=== PATIENT | female | born 1955 | race Caucasian/White ===

== ENCOUNTER → 2016-09-21 | Outpatient (CLI) | payer MEDICARE, OTHER ==
[2016-09-21 08:07] LABS: Basophils # (A) 0.1 k/uL (0-0.2); Basophils % (A) 1 %; CH 32.5; CHCM 34.2; Eosinophils # (A) 0.3 k/uL (0-0.7); Eosinophils % (A) 3 %; HCT 51.3 % (34.0-46.0); HDW 2.31; HGB 17.2 gm/dL (11.4-16.0); Luc # (Auto) 0.35; Luc % (Auto) 4; Lymphocytes # (A) 2.3 k/uL (1.0-4.8); Lymphocytes % (A) 24 %; MCHC 33.6 g/dL (31.0-37.0); MCV 95.5 fL (80.0-100.0); Mean Platelet Volume 7.9; Monocytes # (A) 0.5 k/uL (0-1.0); Monocytes % (A) 5 %; Neutrophils # (A) 6.3 k/uL (1.3-7.7); Neutrophils % (A) 64 %; RBC 5.38 m/uL (3.80-5.40); WBC 9.9 k/uL (3.8-10.6); WBC (Perox) 9.24
[2016-09-21 10:57] LABS: ALT 43 U/L (9-52); AST 21 U/L (14-36); Alkaline Phosphatase 94 U/L (38-126); Anion Gap 11 mmol/L; Blood Urea Nitrogen 16 mg/dL (7-17); Calcium 9.7 mg/dL (8.4-10.2); Carbon Dioxide 30 mmol/L (22-30); Chloride 97 mmol/L (98-107); Cholesterol 178 mg/dL (<200); Glucose 133 mg/dL (74-99); HDL Cholesterol 49 mg/dL (40-60); Non-African American GFR(MDRD) >60 (>60 ml/min/1.73 sqM); Potassium 4.9 mmol/L (3.5-5.1); Sodium 138 mmol/L (137-145); Total Bilirubin 0.7 mg/dL (0.2-1.3); Total Protein 7.4 g/dL (6.3-8.2); Triglycerides 284 mg/dL (<150)
[2016-09-21 11:39] LABS: Vitamin B12 348 pg/mL (239-931)
== END | disposition home or self-care (01) ==
LOC: LABWHC1 07:51 → EEVIPCON 07:51
PROVIDERS: ATTEND Physician Assistant Medical
DX: E03.9 Hypothyroidism, unspecified (principal); E66.9 Obesity, unspecified; Z79.899 Other long term (current) drug therapy
CPT/HCPCS: 36415; 80053; 80061; 82306; 82607; 83036; 84439; 84443; 85025

== ENCOUNTER 2020-07-29 07:14 | Emergency (ER) | payer MEDICARE, OTHER ==
[2020-07-29 07:20] VITALS: BP 141/89; PULSE 72; RESP 20; TEMP 98.3
--- NOTE | 2020-07-29 07:47 | ED ---
General Adult HPI - General Chief complaint: ENT Stated complaint: ear fullness Time Seen by Provider: 07/29/20 07:23 Source: patient, RN notes reviewed Mode of arrival: ambulatory Limitations: no limitations - History of Present Illness Initial comments: Patient is a pleasant 62-year-old female presenting to the emergency Department with complaints of ear fullness. Patient states she had symptoms starting over week ago. Patient went to urgent care and was given an antibiotic, azithromycin. Patient states she is ALLERGIC to amoxicillin. Patient states the infection since cleared up however she still has some fullness of her ears. Patient states she has been a little bit lightheaded occasionally. No hearing loss. Patient states there was concern for sinus infection. Patient does have rhinorrhea, clear however no congestion. Patient states symptoms are mild. Patient denies any difficulty with coordination or walking. - Related Data Previous Rx's Medication Instructions Recorded Clarithromycin [Biaxin] 500 mg PO BID 10 Days #20 tab 07/29/20 Loratadine [Claritin] 10 mg PO DAILY #15 tab 07/29/20 Allergies Allergy/AdvReac Type Severity Reaction Status Date / Time No Known Allergies Allergy Verified 07/29/20 07:20 Review of Systems ROS Statement: Those systems with pertinent positive or pertinent negative responses have been documented in the HPI. ROS Other: All systems not noted in ROS Statement are negative. Constitutional: Denies: fever Eyes: Denies: eye pain ENT: Reports: as per HPI Respiratory: Denies: cough Cardiovascular: Denies: chest pain Endocrine: Denies: fatigue Gastrointestinal: Denies: abdominal pain Genitourinary: Denies: dysuria Musculoskeletal: Denies: back pain Skin: Denies: rash Neurological: Denies: headache, weakness, confusion Past Medical History Past Medical History: Hyperlipidemia, Hypertension, Thyroid Disorder History of Any Multi-Drug Resistant Organisms: None Reported Past Surgical History: Section Past Psychological History: Anxiety Smoking Status: Current every day smoker Past Alcohol Use History: Occasional Past Drug Use History: None Reported General Exam Limitations: no limitations General appearance: alert, in no apparent distress Head exam: Present: atraumatic Eye exam: Present: normal appearance, PERRL, EOMI. Absent: nystagmus ENT exam: Present: normal oropharynx, other (Patient does have mild amount of fluid bilateral TMs. Mild erythema, more so on the right) Neck exam: Present: normal inspection. Absent: tenderness Respiratory exam: Present: normal lung sounds bilaterally Cardiovascular Exam: Present: regular rate, normal rhythm GI/Abdominal exam: Present: soft. Absent: tenderness Extremities exam: Present: normal inspection. Absent: pedal edema, calf tenderness Neurological exam: Present: alert, CN II-XII intact. Absent: motor sensory deficit Expanded Speech: Present: fluid speech Cranial nerves: EOM's Intact: Normal Motor strength exam: RUE: 5, LUE: 5, RLE: 5, LLE: 5 Eye Response: (4) open spontaneously Motor Response: (6) obeys commands Verbal Response: (5) oriented Psychiatric exam: Present: normal affect, normal mood Skin exam: Present: normal color Course Vital Signs 07/29/20 07:16 Temperature 98.3 F Pulse Rate 72 Respiratory 20 Rate Blood Pressure 141/89 O2 Sat by Pulse 100 Oximetry Disposition Clinical Impression: Otitis media, Middle ear effusion Disposition: HOME SELF-CARE Condition: Stable Instructions (If sedation given, give patient instructions): Earache (ED) Additional Instructions: Please do follow-up with primary care physician as well as ENT, number provided in the next day or 2 for recheck. Return for difficulty walking or problems with coordination, confusion or weakness, speech problems, hearing loss, worsening symptoms or any other concerns. Prescriptions have been sent to [facility] pharmacy in [place] Prescriptions: Clarithromycin [Biaxin] 500 mg PO BID 10 Days #20 tab Loratadine [Claritin] 10 mg PO DAILY #15 tab Is patient prescribed a controlled substance at d/c from ED?: No Referrals: [facility],Jaime Ugarte [Primary Care Provider] - 1-2 days Rambo Gonzalez MD [STAFF PHYSICIAN] - 1-2 days Time of Disposition: 07:45
== END 2020-07-29 07:54 | disposition home or self-care (01) ==
LOC: EC 07:14
DX: H65.90 Unspecified nonsuppurative otitis media, unspecified ear (principal); F17.200 Nicotine dependence, unspecified, uncomplicated
CPT/HCPCS: 99282

== ENCOUNTER → 2023-12-30 | Outpatient (CLI) | payer MEDICARE, OTHER | END | disposition home or self-care (01) | LOC: LABPRL 12:00 | PROVIDERS: ATTEND Registered Nurse | DX: I10 Essential (primary) hypertension (principal); E78.2 Mixed hyperlipidemia; E03.9 Hypothyroidism, unspecified | CPT/HCPCS: 80053; 80061; 82306; 82607; 83735; 84439; 84443; 85025 ==

== ENCOUNTER → 2024-11-08 | Outpatient (CLI) | payer MEDICARE, OTHER ==
--- NOTE | 2024-11-08 11:37 | MM ---
Reason for Exam: Clinical finding. Indicated Problems: Lump or thickening of the right side for 2 Week(s). Patient History: Menarche at age 14. First Full-Term at age 21. Postmenopausal. Risk Values: Lizette 5 year model risk: 1.2%. NCI Lifetime model risk: 4.4%. Prior Study Comparison: No prior studies available for comparison. Tissue Density: There are scattered areas of fibroglandular density. Findings: Analyzed By CAD. Palpable abnormality correlates with estimated mass in the upper outer quadrant upper outer quadrant. This is located in the area of the upper outer quadrant approximately 6.4 cm from the nipple measuring up to 16 mm. Overall Assessment: Incomplete: need additional imaging evaluation, BI-RAD 0 Management: Diagnostic Breast Ultrasound of the right breast. Results were given to the patient verbally at the time of exam. Patient should continue monthly self-breast exams. A clinical breast exam by your physician is recommended on an annual basis. This exam should not preclude additional follow-up of suspicious palpable abnormalities. Note on Lizette scores and lifetime risk: 1. A Lizette score greater than 3% is considered moderate risk. If this is the case, consider specialist referral to assess eligibility for a risk reducing agent. 2. If overall lifetime risk for the development of breast cancer is 20% or higher, the patient may qualify for future screening with alternating mammogram and breast MRI. [facility], , 11/08/2024 11:34 AM. Electronically signed and approved by: Cassius Wiseman DO
--- NOTE | 2024-11-08 11:37 | USB ---
Patient History: Menarche at age 14. First Full-Term at age 21. Postmenopausal. Risk Values: Lizette 5 year model risk: 1.2%. NCI Lifetime model risk: 4.4%. Findings: Technique utilized:US breast limited RT Image; Ultrasound imaging of: All 4 quadrants, the retroareolar region and axilla. Irregular shaped hypoechoic mass at 11:00 6 cm from the nipple in the area of palpable abnormality measuring at least 1.5 x 1.6 x 1.8 cm. Satellite lesion measuring up to 6 mm present at 11:00 5 cm from the nipple. Additionally there is thickened cortex lymph nodes present up to 6 mm. Overall Assessment: Highly suggestive of malignancy, BI-RAD 5 Management: Ultrasound Core Biopsy of the right breast. At least 2 site biopsy including the right axilla and right breast mass at 11:00 6 cm from the nipple. A clinical breast exam by your physician is recommended on an annual basis and results should be correlated with mammographic findings. This exam should not preclude additional follow-up of suspicious palpable abnormalities. Results were given to the patient verbally at the time of exam. [facility], , 11/08/2024 11:34 AM. Electronically signed and approved by: Cassius Wiseman DO
== END | disposition home or self-care (01) ==
LOC: RADMAMWWP 10:33
PROVIDERS: ATTEND Internal Medicine Pulmonary Disease
DX: N63.10 Unspecified lump in the right breast, unspecified quadrant (principal); R92.323 Mammographic fibroglandular density, bilateral breasts; Z78.0 Asymptomatic menopausal state
CPT/HCPCS: 77066; 76642; G0279; 77062

== ENCOUNTER → 2024-11-23 | Day surgery (SDC) | payer MEDICARE, OTHER ==
--- NOTE | 2024-12-05 08:36 | MM ---
Reason for Exam: Post Procedure Mammogram. Last screening mammogram was performed less than 1 month ago. Patient History: Menarche at age 14. First Full-Term at age 21. Postmenopausal. Risk Values: Lizette 5 year model risk: 1.2%. NCI Lifetime model risk: 4.2%. Prior Study Comparison: 11/08/2024 Bilateral MG 3D diag mammo w/cad [facility], [facility]. Tissue Density: Right: There are scattered areas of fibroglandular density. Pathology Description: Location: axilla. Marker Left Behind. Cores: 2 Gauge: 18 Bard 18g. Pathology Description: Location: 11 o'clock. Marker Left Behind. Needle Type: Celero Cores: 2 Gauge: 12 The procedure of ultrasound guided core biopsy was explained to the patient. Benefits, alternatives, and risks were discussed. An informed consent was then obtained. The patient was placed in supine positioning for imaging and for the procedure. Preprocedure imaging redemonstrates a lobulated 1.6 cm hypoechoic mass at 11:00 position 6 cm distance from nipple and a suspicious 1.1 x 0.9 cm lymph node in the right axilla with eccentric cortical thickening. The overlying skin was prepped and draped in usual sterile fashion. Lidocaine buffered with bicarbonate was used as anesthetic into the skin and subcutaneous tissue . Lidocaine with epinephrine is used as anesthetic into the deeper tissue up to 2 areas of concern in the right breast. Under ultrasound guidance, a vacuum assisted biopsy gun device was used to obtain 2 core samples of the 11:00 mass. Following this, a biopsy clip was left in lesion. Under ultrasound guidance, a 18-gauge Bard device was used to obtain 2 core samples of the right axillary lymph node. Following this, a biopsy clip was left in lesion. The patient tolerated the procedure well without any immediate complication. The patient was kept in the radiology department for short stay after the procedure and then discharged home in stable condition. Postprocedure mammogram: The patient was transferred to mammography for physician ordered post procedure mammogram for clip placement verification. Post procedure mammogram demonstrates appropriate placement of clip in the 11:00 lesion. Second clip is not identified due to position high in the axilla. Impression: Successful, uncomplicated ultrasound guided core biopsy of 2 areas of concern in the right breast, full pathology results to follow. High index of suspicion noted at time of procedure. [facility], , 11/23/2024 1:04 PM. Pathology Results: Result: Malignant, Invasive ductal carcinoma. Pathology and radiology were reviewed. Findings are concordant. A. RIGHT BREAST 11:00, CORE BIOPSY: Invasive well differentiated ductal carcinoma (Grade 1). See Surgical Pathology Cancer Case Summary and Comment. B. RIGHT AXILLA, CORE BIOPSY: Benign lymph node. Overall Assessment: Malignant Assessment: MG diagnostic mammo RT wo CAD - Right: Known biopsy proven malignancy, BI-RAD 6. Management: Surgical Consultation of the right breast. Electronically signed and approved by: Ryan Wasserman M.D.
== END ==
LOC: RADUSWWP 10:11
PROVIDERS: ATTEND Surgery
DX: C50.411 Malignant neoplasm of upper-outer quadrant of right female breast (principal); Z17.0 Estrogen receptor positive status [ER+]; Z78.0 Asymptomatic menopausal state
CPT/HCPCS: 88305; 88342; 88341; 77065; 19083; 38505; A4648

== ENCOUNTER → 2024-12-13 | Outpatient (CLI) | payer MEDICARE, OTHER ==
[2024-12-13 15:18] VITALS: BP 136/82; PULSE 59; RESP 17; TEMP 98
--- NOTE | 2024-12-13 15:58 | P.GSCN ---
History of Present Illness Consult date: 12/13/24 Reason for Consult: right breast IDC [id number] Requesting physician: Aleksandar Mendoza History of present illness: Екатерина is a 69 year old female seen with her sales representative electric service from [facility], Gisselle Martel regarding a biopsy proven right breast invasive ductal cancer. She had a bilateral mammogram on 11-08-24 which led to a right breast ultrasound on the same date. She had a core biopsy on 11-23-24 of the bresat lesion as well as an axillary node. The cortes was benign, and the breat lesion wash IDC, 1.8 mm in size. Within a cm of the lesion there was a second lesion noted on ultrasound which was considered suspicious. Екатерина felt a lump in her right breast for about one month. She than had a mammogram. This was her first mammogram. She also feels a lump under her arm. She is not complaining of any ni[pple discharge or skin changes. She has not had any surgery on her breast. She lives independently. She does have a history of schizophrenia, she sees Jayne Garcia; fluphenazine decanonateIm every two weeks at [facility]. Caffeine: 2 cups to 3 cups/day of coffee Nicotine: 2 packs/day Chocolate: occasional hormones: none Family History: adopted at three non known Hormonal History: menarche: 14 , age at first : 21, breat fed: no menopause: 40's Surgical History: episotomy and 2 C-Sections Medical History: she has a legal gaurdian Social History: nicotine: 2 PPD alcohol: weekly, drinks beer drugs: Marijuana monthly Review of Systems - Constitutional Denies fever, Denies weight loss - EENT Eyes: denies blurred vision Ears: deny: decreased hearing, tinnitus Ears, nose, mouth and throat: Denies dysphagia - Breasts bilateral: as per HPI - Cardiovascular Denies chest pain, Denies shortness of breath - Respiratory Denies cough, Denies 7 - Gastrointestinal Reports as per HPI - Genitourinary Genitourinary: Denies dysuria, Denies hematuria Menstruation: Reports postmenopausal - Musculoskeletal Reports as per HPI - Integumentary Reports as per HPI - Neurological Reports as per HPI - Psychiatric Psychiatric Comment(s): schizophrenia Reports as per HPI - Endocrine Reports as per HPI - Hematologic/Lymphatic Denies easy bleeding, Denies easy bruising - Allergic/Immunologic Reports as per HPI Past Medical History Past Medical History: Hyperlipidemia, Hypertension, Thyroid Disorder History of Any Multi-Drug Resistant Organisms: None Reported Past Surgical History: Section Past Anesthesia/Blood Transfusion Reactions: No Reported Reaction Past Psychological History: Anxiety, Schizophrenia Smoking Status: Current every day smoker Past Alcohol Use History: Occasional Past Drug Use History: None Reported Additional Drug Use History / Comment(s): unsure per guardian 0 Medications and Allergies Home Medications Medication Instructions Recorded Confirmed Type Benztropine Mesylate [Cogentin] 2 mg PO DAILY 11/09/24 12/13/24 History Ezetimibe [Zetia] 10 mg PO BID 11/09/24 12/13/24 History Ibuprofen [Motrin] 400 mg PO Q6HR PRN 11/09/24 12/13/24 History Levothyroxine Sodium [Synthroid] 112 mcg PO DAILY 11/09/24 12/13/24 History amLODIPine [Norvasc] 5 mg PO DAILY 11/09/24 12/13/24 History atenoloL 100 mg PO DAILY 11/09/24 12/13/24 History fluPHENAZine [Prolixin 5MG] 25 mg PO DAILY 11/09/24 12/13/24 History Allergies Allergy/AdvReac Type Severity Reaction Status Date / Time No Known Allergies Allergy Verified 12/13/24 15:15 Surgical - Exam Vital Signs Temp Pulse Resp BP Pulse Ox 98 F 59 L 17 136/82 95 12/13/24 15:15 12/13/24 15:15 12/13/24 15:15 12/13/24 15:15 12/13/24 15:15 - General moderate distress - Eyes normal ocular movement - Neck trachea midline - Respiratory normal respiratory effort, clear to auscultation - Cardiovascular Rhythm: regular Heart Sounds: normal: S1, S2 - Integumentary normal turgor - Neurologic no disoriented, no combative - Musculoskeletal uses a walker Breast Exam: BRA: does not wear a bra inspection: Bilateral grade 3 ptosis, biopsy site right breast clean and dry and well-healed Palpation: Right breast: Multi positional exam reveals an area of nodularity in the upper mid breast approximately 1-1/2 cm in size felt to be consistent with the radiographic and biopsy-proven invasive ductal carcinoma of the right breast, in the right axilla there is a palpable lymph node which is most likely that which was biopsied and was benign Right axilla: Palpable lymph node freely mobile Left breast: Multi positional exam no dominant masses or nodules of concern Left axilla: No adenopathy of concern Results Biopsy-proven right breast invasive ductal carcinoma ER/[place] positive HER2 negative, second satellite lesion approximately 6 mm approximately 1 cm distant from initial lesion, biopsy right axillary lymph node benign Mammogram and ultrasound personally reviewed and discussed with Dr. Lou from radiology Assessment and Plan Assessment: Impression: Schizophrenia Biopsy-proven right breast invasive ductal carcinoma Right axillary adenopathy biopsy proven benign Second satellite lesion approximately 6 mm 1 cm distant from initial lesion in the right breast No lesions of concern in the left breast Plan: Right breast full ultrasound Present case at tumor board CC: Dr. Mendoza
== END ==
LOC: WWCWWP 14:58
PROVIDERS: ATTEND Surgery
DX: C50.911 Malignant neoplasm of unspecified site of right female breast (principal); F20.9 Schizophrenia, unspecified; R59.0 Localized enlarged lymph nodes; F12.90 Cannabis use, unspecified, uncomplicated